=== PATIENT | female | born 1940 | race African-American/Black ===

== ENCOUNTER 2017-08-05 23:28 | Inpatient (IN) | payer MEDICARE ==
[~2017-08-05] VITALS: Ht 152.4 cm; Wt 66.7 kg
[2017-08-05 23:33] VITALS: BP 174/74; PULSE 50; RESP 18; TEMP 97.9; O2SAT 100
[2017-08-05 23:39] VITALS: BP 160/72; PULSE 50; RESP 16; TEMP 97.7; O2SAT 100
--- NOTE | 2017-08-05 23:57 | PD ---
HPI Chief Complaint: GI Complaint Time Seen by Provider: 23:36 Travel History International Travel<30 days: No Contact w/Intl Traveler<30days: No Traveled to known affect area: No History of Present Illness HPI VERY LIMITED HISTORY...PT IS [facility] ONLY GIVES A HISTORY OF LIVES WITH FAMILY WHO AT BEDSIDE STATED VOMITING FOR PAST 2 DAYS. NO OTHER INFORMATION IS KNOWN, APPARENTLY FAMILY EN ROUTE....AT A MUCH LATER TIME DAUGHTER ARRIVED WITH ADDITIONAL HISTORY: USED TO LIVE IN [place] WITH SON BUT GOT DISPLACED DUE TO HURRICANE ALEX, DURING THE LAST COUPLE OF DAYS PT HAS HAD EPISODES OF N/V AND GRIMACING. PMHX OF [facility]/HIGH CHOL/DEPRESSION PFSH Social History Tobacco Use: No Allergies-Medications (Allergen,Severity, Reaction): Coded Allergies: Penicillins (Verified Allergy, Severe, 08/06/17) Reported Meds & Prescriptions Reported Meds & Active Scripts Active Reported Atorvastatin (Atorvastatin Calcium) 40 Mg Tab 40 Mg PO HS Review of Systems Except as stated in HPI: all other systems reviewed are Neg Gastrointestinal: Positive: Vomiting, Diarrhea Physical Exam Narrative GENERAL: SKIN: Warm and dry. HEAD: Atraumatic. Normocephalic. EYES: Pupils equal and round. No scleral icterus. No injection or drainage. ENT: No nasal bleeding or discharge. Mucous membranes pink and moist. NECK: Trachea midline. No JVD. CARDIOVASCULAR: Regular rate and rhythm. RESPIRATORY: No accessory muscle use. Clear to auscultation. Breath sounds equal bilaterally. GASTROINTESTINAL: Abdomen soft, MILD SUPRAPUBIC TTPALPATION, nondistended. MUSCULOSKELETAL: Extremities without clubbing, cyanosis, or edema. No obvious deformities. NEUROLOGICAL: Awake and alert. No obvious cranial nerve deficits. Motor grossly within normal limits. Five out of 5 muscle strength in the arms and legs. Normal speech. CONFUSED A/O TO NAME ONLY, GCS 14/15, BUT FOLLOWS COMMANDS WELL PSYCHIATRIC: Appropriate mood and affect; insight and judgment normal. Data Data Last Documented VS Vital Signs Date Time Temp Pulse Resp B/P (MAP) Pulse Ox O2 Delivery O2 Flow Rate FiO2 08/06/17 00:28 18 98 Room Air 08/05/17 23:39 97.7 50 Orders Orders Electrocardiogram (08/05/17 23:43) Complete Blood Count With Diff (08/05/17 23:43) Comprehensive Metabolic Panel (08/05/17 23:43) Ckmb (Isoenzyme) Profile (08/05/17 23:43) Troponin I (08/05/17 23:43) B-Type Natriuretic Peptide (08/05/17 23:43) Prothrombin Time / Inr (Pt) (08/05/17 23:43) Act Partial Throm Time (Ptt) (08/05/17 23:43) Lipase (08/05/17 23:43) Urinalysis - C+S If Indicated (08/05/17 23:43) Thyroid Stimulating Hormone (08/05/17 23:43) Chest, Single Ap (08/05/17 23:43) Ct Brain W/O Iv Contrast(Rout) (08/05/17 23:43) Ct Abd/Pel W/O Iv Contrast (08/05/17 23:43) Iv Access Insert/Monitor (08/05/17 23:43) Ecg Monitoring (08/05/17 23:43) Oximetry (08/05/17 23:43) Metronidazole 500 Mg Inj (Flagyl 500 Mg (08/06/17 02:15) Levofloxacin 500 Mg Premix Inj (Levaquin (08/06/17 02:15) Admit Order (Ed Use Only) (08/06/17 02:33) Vital Signs (Adult) Q4H (08/06/17 02:33) Diet Npo (08/06/17 Breakfast) Activity Oob With Assistance (08/06/17 02:33) Notify Dr: Other (08/06/17 02:33) Admit To Inpatient (08/06/17 ) Vital Signs (Adult) Q4H (08/06/17 02:33) Activity Oob With Assistance (08/06/17 02:33) Relationship Advisor / Telemetry .CONTINUOUS (08/06/17 02:33) Intake + Output GISSELLE.QSHIFT (08/06/17 02:33) Sodium Chloride 0.9% Flush (Ns Flush) (08/06/17 02:45) Sodium Chloride 0.9% Flush (Ns Flush) (08/06/17 09:00) Ondansetron Inj (Zofran Inj) (08/06/17 02:45) Basic Metabolic Panel (Bmp) (08/07/17 06:00) Complete Blood Count With Diff (08/07/17 06:00) Pt Request For Service (08/06/17 02:33) Case Management Consult (08/06/17 02:33) Naloxone Inj (Narcan Inj) (08/06/17 02:45) Inpatient Certification (08/06/17 ) Levofloxacin 750 Mg Premix Inj (Levaquin (08/07/17 02:45) Metronidazole 500 Mg Inj (Flagyl 500 Mg (08/06/17 08:45) Labs Laboratory Tests Test 08/05/17 23:47 08/06/17 02:03 White Blood Count 7.7 TH/MM3 Red Blood Count 4.41 MIL/MM3 Hemoglobin 11.9 GM/DL Hematocrit 37.2 % Mean Corpuscular Volume 84.5 FL Mean Corpuscular Hemoglobin 26.9 PG Mean Corpuscular Hemoglobin Concent 31.9 % Red Cell Distribution Width 15.6 % Platelet Count 364 TH/MM3 Mean Platelet Volume 7.1 FL Neutrophils (%) (Auto) 59.2 % Lymphocytes (%) (Auto) 32.6 % Monocytes (%) (Auto) 5.6 % Eosinophils (%) (Auto) 1.6 % Basophils (%) (Auto) 1.0 % Neutrophils # (Auto) 4.6 TH/MM3 Lymphocytes # (Auto) 2.5 TH/MM3 Monocytes # (Auto) 0.4 TH/MM3 Eosinophils # (Auto) 0.1 TH/MM3 Basophils # (Auto) 0.1 TH/MM3 CBC Comment DIFF FINAL Differential Comment Prothrombin Time 10.4 SEC Prothromb Time International Ratio 0.9 RATIO Activated Partial Thromboplast Time 23.5 SEC Blood Urea Nitrogen 6 MG/DL Creatinine 0.77 MG/DL Random Glucose 173 MG/DL Total Protein 7.6 GM/DL Albumin 3.6 GM/DL Calcium Level 9.0 MG/DL Alkaline Phosphatase 112 U/L Aspartate Amino Transf (AST/SGOT) 26 U/L Alanine Aminotransferase (ALT/SGPT) 30 U/L Total Bilirubin 0.4 MG/DL Sodium Level 141 MEQ/L Potassium Level 3.4 MEQ/L Chloride Level 107 MEQ/L Carbon Dioxide Level 23.4 MEQ/L Anion Gap 11 MEQ/L Estimat Glomerular Filtration Rate 73 ML/MIN Total Creatine Kinase 99 U/L Troponin I LESS THAN 0.02 NG/ML B-Type Natriuretic Peptide 16 PG/ML Lipase 543 U/L Thyroid Stimulating Hormone 3rd Gen 4.230 uIU/ML Urine Color YELLOW Urine Turbidity CLEAR Urine pH 6.0 Urine Specific [place] 1.022 Urine Protein TRACE mg/dL Urine Glucose (UA) NEG mg/dL Urine Ketones 10 mg/dL Urine Occult Blood SMALL Urine Nitrite NEG Urine Bilirubin NEG Urine Urobilinogen LESS THAN 2.0 MG/DL Urine Leukocyte Esterase NEG Urine RBC 4 /hpf Urine WBC 1 /hpf Urine Squamous Epithelial Cells 2 /hpf Urine Mucus FEW /lpf Microscopic Urinalysis Comment CULT NOT INDICATED MDM Medical Decision Making Medical Screen Exam Complete: Yes Emergency Medical Condition: Yes Medical Record Reviewed: Yes Interpretation(s) SINUS ABILIO 51, LBBB (UNKNOWN IF NEW) Differential Diagnosis ATYPICAL WI V GASTROENTERITIS V PANCREATITIS V ICH Narrative Course AFTER THOROUGH EVALUATION PATIENT WAS FOUND TO HAVE NO LEUKOCYTOSIS, CT ABD C/W SIGMOID COLITIS, NOTED HYPERGLYCEMIA, MILD ELEVATION OF LIPASE BUT NOT C/W PANCREATITIS., Diagnosis Primary Impression: SIGMOID COLITIS Admitting Information Admitting Physician Requests: Observation Fantasma Jurado MD Aug 05, 2017 23:57
[2017-08-06] LABS: AUTOMATED NEUTROPHIL # 4.6 TH/MM3 (1.8-7.7); BASOPHIL # 0.1 TH/MM3 (0-0.2); EOSINOPHIL # 0.1 TH/MM3 (0-0.4); EOSINOPHIL % 1.6 % (0.0-4.0); HEMATOCRIT 37.2 % (35.0-46.0); HEMO FLAGS DIFF FINAL; LYMPH % 32.6 % (9.0-44.0); LYMPHOCYTE # 2.5 TH/MM3 (1.0-4.8); MEAN CELL VOLUME 84.5 FL (80.0-100.0); MEAN CORPUSCULAR HEMOGLOBIN 26.9 PG (27.0-34.0); MEAN CORPUSCULAR HGB CONC 31.9 % (32.0-36.0); MONO % 5.6 % (0.0-8.0); NEUT % 59.2 % (16.0-70.0); PLATELET COUNT 364 TH/MM3 (150-450); RED BLOOD COUNT 4.41 MIL/MM3 (4.00-5.30); RED CELL DISTRIBUTION WIDTH 15.6 % (11.6-17.2); WHITE BLOOD COUNT 7.7 TH/MM3 (4.0-11.0)
[2017-08-06 00:12] LABS: APTT (PATIENT) 23.5 SEC (24.3-30.1); INTERNATIONAL NORMALIZED RATIO 0.9 RATIO; PROTHROMBIN TIME - PATIENT 10.4 SEC (9.8-11.6)
[2017-08-06 00:17] LABS: ANION GAP 11 MEQ/L (5-15); AST (GOT) 26 U/L (15-37); BICARBONATE 23.4 MEQ/L (21.0-32.0); BLOOD UREA NITROGEN 6 MG/DL (7-18); CHLORIDE 107 MEQ/L (98-107); GLOMERULAR FILTRATION RATE 73 ML/MIN (>89); POTASSIUM 3.4 MEQ/L (3.5-5.1); SODIUM (NA) 141 MEQ/L (136-145)
[2017-08-06 00:18] LABS: ALT (GPT) 30 U/L (10-53)
[2017-08-06 00:28] VITALS: RESP 18; O2SAT 98
[2017-08-06 00:28] LABS: ALKALINE PHOSPHATASE 112 U/L (45-117); CREATINE KINASE 99 U/L (26-192); TOTAL BILIRUBIN ADULT 0.4 MG/DL (0.2-1.0)
--- NOTE | 2017-08-06 00:30 | RADRPT ---
EXAM DATE/TIME: 08/06/2017 00:18 [facility] COMPARISON: No previous studies available for comparison. INDICATIONS : Altered mental status. RADIATION DOSE: 46.78 CTDIvol (mGy) MEDICAL HISTORY : Alzheimer's SURGICAL HISTORY : None. ENCOUNTER: Initial ACUITY: 1 day PAIN SCALE: 0/10 LOCATION: cranial TECHNIQUE: Multiple contiguous axial images were obtained of the head. Using automated exposure control and adj ustment of the mA and/or kV according to patient size, radiation dose was kept as low as reasonably a chievable to obtain optimal diagnostic quality images. DICOM format image data is available electro nically for review and comparison. FINDINGS: There is no evidence of acute cortical infarction, acute hemorrhage, mass effect or midline shift. Th e ventricles are enlarged out of proportion to the sulcal atrophy. In addition the third ventricle is somewhat prominent. Clinical correlation would be helpful in regards to the possibility of normal pr essure hydrocephalus. Posterior fossa structures are unremarkable. CONCLUSION: 1. Possible normal pressure hydrocephalus. Correlation with clinical findings is necessary. 2. No evidence of acute intracranial pathology. No masses are identified. Aleksandr Alcantara MD on August 06, 2017 at 0:28 Board Certified Radiologist. This report was verified electronically.
--- NOTE | 2017-08-06 00:35 | RADRPT ---
EXAM DATE/TIME: 08/06/2017 00:10 [facility] COMPARISON: No previous studies available for comparison. INDICATIONS : Short of breath. MEDICAL HISTORY : None. SURGICAL HISTORY : None. ENCOUNTER: Initial ACUITY: 1 day PAIN SCORE: 0/10 LOCATION: Bilateral chest FINDINGS: A single view of the chest demonstrates the lungs to be symmetrically aerated without evidence of mas s, infiltrate or effusion. The cardiomediastinal contours are unremarkable. Osseous structures are intact. CONCLUSION: 1. No acute cardiopulmonary disease. Aleksandr Alcantara MD on August 06, 2017 at 0:33 Board Certified Radiologist. This report was verified electronically.
--- NOTE | 2017-08-06 00:41 | RADRPT ---
EXAM DATE/TIME: 08/06/2017 00:20 [facility] COMPARISON: No previous studies available for comparison. INDICATIONS : Nausea and vomiting x3 days. ORAL CONTRAST: No oral contrast ingested. RADIATION DOSE: 6.60 CTDIvol (mGy) MEDICAL HISTORY : Alzheimer's SURGICAL HISTORY : None. ENCOUNTER: Initial ACUITY: 1 day PAIN SCALE: 2/10 LOCATION: Bilateral abdomen TECHNIQUE: Volumetric scanning of the abdomen and pelvis was performed. Using automated exposure control and ad justment of the mA and/or kV according to patient size, radiation dose was kept as low as reasonably achievable to obtain optimal diagnostic quality images. DICOM format image data is available electro nically for review and comparison. FINDINGS: Examination of the lung bases demonstrates no abnormality. No pleural fluid is identified. No pulmona ry nodules are present.The liver and spleen are normal in size and no focal defects are identified. T he gallbladder is absent. The pancreas demonstrates normal contour without evidence of mass or ductal dilatation. The adrenal glands and kidneys appear normal bilaterally. No hydronephrosis or mass lesi ons are identified. There is thickening of the wall of the sigmoid colon with a large amount of stool present. This may r eflect stercoral colitis. The bladder appears normal. No wall thickening or intraluminal masses are i dentified. CONCLUSION: 1. Possible stercoral colitis in the sigmoid colon. Aleksandr Alcantara MD on August 06, 2017 at 0:34 Board Certified Radiologist. This report was verified electronically.
[2017-08-06] MEDS ORDERED: ATOR40TA16 PO (00:48)
[2017-08-06 02:12] LABS: BLOOD, URINE SMALL (NEG); COMMENT (UR) CULT NOT INDICATED; CULTURE IF INDICATED CULT NOT INDICATED; GLUCOSE,URINE NEG (NEG); KETONE, URINE 10 mg/dL (NEG); MUCUS URINE FEW /lpf (OCC); NITRITE,URINE NEG (NEG); SQUAMOUS EPITHELIAL CELL URINE 2 /hpf (0-5); URINE COLOR YELLOW (YELLW/STRAW)
[2017-08-06] MEDS ORDERED: LEVOFLOXACIN 500 MG PREMIX INJ 100 ML IV ONE (02:15)
[2017-08-06] MEDS ORDERED: metroNIDAZOLE 500 MG INJ 100 ML IV ONE (02:15)
[2017-08-06 02:39] VITALS: BP 168/81; PULSE 55; RESP 18; O2SAT 99
[2017-08-06] MEDS ORDERED: NALOXONE HCL 0.4 MG/ML AMP IV PUSH PRN (02:45)
[2017-08-06] MEDS ORDERED: SODIUM CHLORIDE 0.9% FLUSH 10 ML FLUSH IV FLUSH PRN (02:45)
[2017-08-06] MEDS ORDERED: ONDANSETRON HCL 4 MG/2 ML VIAL IVP PRN (02:45)
[2017-08-06 04:00] VITALS: BP 164/72; PULSE 59; RESP 22; TEMP 98; O2SAT 98
[2017-08-06 08:00] VITALS: BP 173/75; PULSE 57; RESP 18; TEMP 98.2; O2SAT 99
[2017-08-06] MEDS ORDERED: metroNIDAZOLE 500 MG INJ 100 ML IV SCH (08:45)
[2017-08-06] MEDS ORDERED: SODIUM CHLORIDE 0.9% FLUSH 10 ML FLUSH IV FLUSH SCH (09:00)
[2017-08-06 09:57] VITALS: PULSE 61
--- NOTE | 2017-08-06 11:50 | HHI.HP ---
[facility] Service [facility] Phys[facility] Non-Staff Admission Diagnosis SIGMOID COLITIS/INTRACTABLE VOMITING Diagnoses: Travel History International Travel<30 Days: No Contact w/Intl Traveler <30 Da: No Traveled to Known Affected Are: No History of Present Illness Mrs. Ignacio is a 77 year old female. She has severe Alzheimer's disease and is unable to provide much history. She was brought in overnight secondary to irretractable vomiting which had been occurring for the past 2 days. The patient feels that she may have drank some alcohol and that this could've triggered her vomiting. She has had problems with vomiting from alcohol in the past. Imaging shows possible sigmoid colitis. She has been started on Flagyl and Levaquin. Today she is doing well. She complains of no abdominal pain. She has tolerated breakfast without evidence of nausea or vomiting. No leukocytosis or fevers. No other complaints. Review of Systems ROS Limitations: Altered Mental Status, Poor Historian Respiratory: DENIES: Cough, Snoring, Wheezing, Shortness of breath Cardiovascular: DENIES: Chest pain, Palpitations, Syncope Gastrointestinal: COMPLAINS OF: Abdominal pain, DENIES: Black stools, Bloody stools Past Family Social History Past Medical History Alzheimer's disease Hyperlipidemia Depression history Past Surgical History Unable to obtain secondary to dementia Reported Medications Reported Meds & Active Scripts Active Reported Atorvastatin (Atorvastatin Calcium) 40 Mg Tab 40 Mg PO HS Allergies: Coded Allergies: Penicillins (Verified Allergy, Severe, 08/06/17) Active Ordered Medications Administered Medications Medications (Trade) Dose Ordered Sig/Bhargav Route PRN Reason Start Time Stop Time Status Last Admin Dose Admin Sodium Chloride (NS Flush) 2 ml BID IV FLUSH 08/06/17 09:00 08/06/17 09:28 Metronidazole 100 ml @ 100 mls/hr Q6H IV 08/06/17 08:45 08/06/17 09:28 Family History Unable to obtain secondary to dementia Social History No smoking reported by patient Illicit drug abuse reported the patient Patient does drink alcohol occasionally Physical Exam Vital Signs Vital Signs Date Time Temp Pulse Resp B/P (MAP) Pulse Ox O2 Delivery O2 Flow Rate FiO2 08/06/17 09:57 61 08/06/17 08:00 98.2 57 18 173/75 (107) 99 08/06/17 04:00 98.0 59 22 164/72 (102) 98 08/06/17 03:51 08/06/17 02:39 55 18 168/81 (110) 99 Room Air 08/06/17 00:28 18 98 Room Air 08/05/17 23:39 97.7 50 16 160/72 (101) 100 Room Air 08/05/17 23:33 97.9 50 18 174/74 (107) 100 Physical Exam GENERAL: NAD, A&Ox1 HEAD: Normocephalic. NECK: Supple, trachea midline. No lymphadenopathy. EYES: No scleral icterus. No injection or drainage. CARDIOVASCULAR: Regular rate and rhythm without murmurs, gallops, or rubs. RESPIRATORY: Breath sounds equal bilaterally. No accessory muscle use. GASTROINTESTINAL: Abdomen soft, non-tender, nondistended. MUSCULOSKELETAL: No cyanosis, or edema. SKIN: Warm and dry. NEURO: No focal neurological deficitis. Laboratory Laboratory Tests Test 08/05/17 23:47 08/06/17 02:03 White Blood Count 7.7 Red Blood Count 4.41 Hemoglobin 11.9 Hematocrit 37.2 Mean Corpuscular Volume 84.5 Mean Corpuscular Hemoglobin 26.9 Mean Corpuscular Hemoglobin Concent 31.9 Red Cell Distribution Width 15.6 Platelet Count 364 Mean Platelet Volume 7.1 Neutrophils (%) (Auto) 59.2 Lymphocytes (%) (Auto) 32.6 Monocytes (%) (Auto) 5.6 Eosinophils (%) (Auto) 1.6 Basophils (%) (Auto) 1.0 Neutrophils # (Auto) 4.6 Lymphocytes # (Auto) 2.5 Monocytes # (Auto) 0.4 Eosinophils # (Auto) 0.1 Basophils # (Auto) 0.1 CBC Comment DIFF FINAL Differential Comment Prothrombin Time 10.4 Prothromb Time International Ratio 0.9 Activated Partial Thromboplast Time 23.5 Blood Urea Nitrogen 6 Creatinine 0.77 Random Glucose 173 Total Protein 7.6 Albumin 3.6 Calcium Level 9.0 Alkaline Phosphatase 112 Aspartate Amino Transf (AST/SGOT) 26 Alanine Aminotransferase (ALT/SGPT) 30 Total Bilirubin 0.4 Sodium Level 141 Potassium Level 3.4 Chloride Level 107 Carbon Dioxide Level 23.4 Anion Gap 11 Estimat Glomerular Filtration Rate 73 Total Creatine Kinase 99 Troponin I LESS THAN 0.02 B-Type Natriuretic Peptide 16 Lipase 543 Thyroid Stimulating Hormone 3rd Gen 4.230 Urine Color YELLOW Urine Turbidity CLEAR Urine pH 6.0 Urine Specific [place] 1.022 Urine Protein TRACE Urine Glucose (UA) NEG Urine Ketones 10 Urine Occult Blood SMALL Urine Nitrite NEG Urine Bilirubin NEG Urine Urobilinogen LESS THAN 2.0 Urine Leukocyte Esterase NEG Urine RBC 4 Urine WBC 1 Urine Squamous Epithelial Cells 2 Urine Mucus FEW Microscopic Urinalysis Comment CULT NOT INDICATED Result Diagram: 08/05/[id number]/[id number] Imaging Last Impressions Head CT 08/05/172342 Signed Impressions: Service Date/Time: Sunday, August 06, 2017 00:18 - CONCLUSION: 1. Possible normal pressure hydrocephalus. Correlation with clinical findings is necessary. 2. No evidence of acute intracranial pathology. No masses are identified. Aleksandr Alcantara MD Chest X-Ray 08/05/172342 Signed Impressions: Service Date/Time: Sunday, August 06, 2017 00:10 - CONCLUSION: 1. No acute cardiopulmonary disease. Aleksandr Alcantara MD Abdomen/Pelvis CT 08/05/172342 Signed Impressions: Service Date/Time: Sunday, August 06, 2017 00:20 - CONCLUSION: 1. Possible stercoral colitis in the sigmoid colon. MD Shamika Nur VTE Risk Assessment Shamika VTE Risk Assessment: No/Low Risk (score <= 1) Caprini Risk Assessment Model Point Value = 1 Point Value = 2 Point Value = 3 Point Value = 5 Age 41-60 Minor surgery BMI > 25 kg/m2 Swollen legs Varicose veins or History of unexplained or recurrent spontaneous Oral contraceptives or hormone replacement Sepsis (< 1 month) Serious lung disease, including pneumonia (< 1 month) Abnormal pulmonary function Acute myocardial infarction Congestive heart failure (< 1 month) History of inflammatory bowel disease Medical patient at bed rest Age 61-74 Arthroscopic surgery Major open surgery (> 45 min) Laparoscopic surgery (> 45 min) Malignancy Confined to bed (> 72 hours) Immobilizing plaster cast Central venous access Age >= 75 History of VTE Family history of VTE Factor V Leiden Prothrombin [id number] Lupus anticoagulant Anticardiolipin antibodies Elevated serum homocysteine Heparin-induced thrombocytopenia Other congenital or acquired thrombophilia Stroke (< 1 month) Elective arthroplasty Hip, pelvis, or leg fracture Acute spinal cord injury (< 1 month) Prophylaxis Regimen Total Risk Factor Score Risk Level Prophylaxis Regimen 0-1 Low Early ambulation 2 Moderate Order ONE of the following: *Sequential Compression Device (SCD) *Heparin 5000 units SQ BID 3-4 Higher Order ONE of the following medications: *Heparin 5000 units SQ TID *Enoxaparin/Lovenox 40 mg SQ daily (WT < 150 kg, CrCl > 30 mL/min) *Enoxaparin/Lovenox 30 mg SQ daily (WT < 150 kg, CrCl > 10-29 mL/min) *Enoxaparin/Lovenox 30 mg SQ BID (WT < 150 kg, CrCl > 30 mL/min) AND/OR *Sequential Compression Device (SCD) 5 or more Highest Order ONE of the following medications: *Heparin 5000 units SQ TID (Preferred with Epidurals) *Enoxaparin/Lovenox 40 mg SQ daily (WT < 150 kg, CrCl > 30 mL/min) *Enoxaparin/Lovenox 30 mg SQ daily (WT < 150 kg, CrCl > 10-29 mL/min) *Enoxaparin/Lovenox 30 mg SQ BID (WT < 150 kg, CrCl > 30 mL/min) AND *Sequential Compression Device (SCD) Assessment and Plan Problem List: (1) Colitis ICD Code: K52.9 - Noninfective gastroenteritis and colitis, unspecified (2) Hyperemesis ICD Code: R11.10 - Vomiting, unspecified Assessment and Plan Assessment and plan 77-year-old female admitted secondary to hyperemesis and colitis Gastroenteritis Colitis Hyperemesis Hyperemesis has resolved with treatments Responded well to antibiotics and IV hydration Tolerating by mouth intake Patient should be medically stable for discharge home today She should continue on Flagyl and Levaquin for 5 days to cover for possible bacterial colitis Alzheimer's disease Supportive care Discharge to family care Depression history No change to baseline treatments Follows in outpatient Discharge planning Discharge home today Rachid Gross MD Aug 06, 2017 11:50
[2017-08-06] MEDS ORDERED: METR-1 PO (11:53)
[2017-08-06] MEDS ORDERED: LEVA250T14 PO (11:53)
[2017-08-06] MEDS ORDERED: LACT PO (11:53)
[2017-08-06 12:00] VITALS: BP 175/77; PULSE 65; RESP 18; TEMP 98.2; O2SAT 98
[2017-08-06] MEDS ORDERED: LACTOBACILLUS ACIDOPHILUS TAB PO SCH (13:00)
[2017-08-06] MEDS ORDERED: metroNIDAZOLE 500 MG TAB PO SCH (14:00)
[2017-08-07] MEDS ORDERED: LEVOFLOXACIN 750 MG PREMIX INJ 150 ML IV SCH (04:00)
--- NOTE | 2017-08-07 07:18 | EKG ---
Date Performed: 08/05/2017 Time Performed: 23:48:33 PTAGE: 77 years EKG: SINUS BRADYCARDIA LEFT BUNDLE BRANCH BLOCK ABNORMAL ECG NO PREVIOUS TRACING DOCTOR: Gabriel Mujica Interpretating Date/Time 08/07/2017 07:16:53
[2017-08-07] MEDS ORDERED: LEVOFLOXACIN 250 MG TAB PO SCH (09:00)
== END 2017-08-06 17:09 | disposition home or self-care (01) | DRG 392 ==
LOC: NEPE 23:28 → NEDA 08-06 02:35 → OBSVTOIN 08-06 02:35 → N05B 08-06 03:41
PROVIDERS: ADMIT Hospitalist; ATTEND Hospitalist
DX: K52.9 Noninfective gastroenteritis and colitis, unspecified (principal); G30.9 Alzheimer's disease, unspecified; F02.80 Dementia in other diseases classified elsewhere, unspecified severity, without behavioral disturbance, psychotic disturbance, mood disturbance, and anxiety; E78.5 Hyperlipidemia, unspecified; F32.9 Major depressive disorder, single episode, unspecified; Z88.0 Allergy status to penicillin
CPT/HCPCS: 70450; 71010; 74176; 80053; 81001; 82550; 83690; 83880; 84443; 84484; 85025; 85610; 85730; 93005; J1956